=== PATIENT | female | born 1945 ===

== ENCOUNTER 2020-02-18 06:00 | Day surgery (SDC) | payer OTHER ==
[~2020-02-18 06:00] MED LIST: ACID REDUCER20 M1 PO; ADULT LOW DOSE81 M1 PO; FORTAMET500 MG PO; GLIMEPIRIDE1 M1 PO; PENTOXIFYLLINE400 MG PO; SIMVAST PO; ZESTRIL5 MG PO
[2020-02-18] MEDS ORDERED: PERCOCET 5-3251 EACH PO (11:16)
[2020-02-18] MEDS ORDERED: NEURONTIN600 M1 PO (11:16)
[2020-02-18] MEDS ORDERED: PEPCID AC20 MG PO (11:16)
[2020-02-18] MEDS ORDERED: POLY119PG PO (11:17)
[2020-02-18] MEDS ORDERED: SURFAK240 M1 PO (11:17)
== END 2020-02-18 16:30 | disposition home or self-care (01) ==
LOC: CIR.AMB 06:00
PROVIDERS: ATTEND Surgery
DX: K42.0 Umbilical hernia with obstruction, without gangrene (principal); K43.0 Incisional hernia with obstruction, without gangrene; Z20.828 Contact with and (suspected) exposure to other viral communicable diseases